=== PATIENT | male | born 1940 | race Caucasian/White ===

== ENCOUNTER 2019-09-21 14:58 | Inpatient (IN) ==
--- NOTE | 2019-09-21 15:32 | Diag Imaging Result Doc PS360 ---
EXAM: CHEST-1 VIEW INDICATION: PNEUMONIA TECHNIQUE: One view COMPARISON: None. FINDINGS: There is a right upper lobe groundglass airspace consolidation consistent with pneumonia. There is no discrete pleural fluid collection or pneumothorax. The cardiomediastinal silhouette and central vasculature are grossly unremarkable. IMPRESSION: Right upper lobe pneumonia. Electronically signed by Shravan Garsia 09/21/2019 3:30 PM
[2019-09-21] MEDS ORDERED: NS 1,000 ML IV ONE (15:34)
[2019-09-21] MEDS ORDERED: CARDIZEM IV ONE ×2 (15:34→17:18)
[2019-09-21] MEDS ORDERED: ZITHROMAX 500 MG/NS 500 MG/250 ML IVPB IV ONE (15:36)
[2019-09-21] MEDS ORDERED: DUONEB (A & A) INH ONE (15:36)
[2019-09-21] MEDS ORDERED: ROCEPHIN 1 GM in NS 50 ML IV ONE (15:36)
[2019-09-21 16:12] LABS: BASO# 0.01 X1000 (0.0-0.2); BASO% 0.1 % (0.0-0.8); HEMATOCRIT 34.6 % (42.0-52.0); HEMOGLOBIN 11.9 g/dL (14.0-18.0); IMM GRAN# 0.06 X1000 (0.0-0.04); IMM GRAN% 0.3 % (0.0-0.5); LYMPH# 0.81 X1000 (1.2-3.4); LYMPH% 4.3 % (20.5-51.1); MCH 31.5 PG (27-31); MCHC 34.4 g/dL (33-37); MCV 91.5 FL (81-99); MONO# 0.87 X1000 (0.11-0.59); MONO% 4.6 % (1.7-9.3); MPV 10.6 FL (7.4-10.4); NEUT# 17.09 X1000 (1.4-6.5); NEUT% 90.7 % (42.2-75.2); PLT 349 X1000 (130-400); RBC 3.78 XMIL (4.7-6.1); RDW 13.2 % (11.5-14.5); WBC 18.84 X1000 (4.8-10.8)
[2019-09-21 16:44] LABS: INR 1.15; PROTIME 14.9 Seconds (11.0-16.0)
[2019-09-21 16:45] LABS: PTT 32.9 Seconds (22.3-41.8)
[2019-09-21 16:51] LABS: ESTIMATED GFR > 60
[2019-09-21 17:04] LABS: AGAP 19; ALB/GLOB RATIO 0.7; ALBUMIN 3.1 g/dL (3.5-5.0); ALKALINE PHOSPHATASE 73 U/L (32-122); BUN 15 mg/dL (8-22); CALCIUM 8.4 mg/dL (8.8-10.2); CHLORIDE 83 mmol/L (98-107); CK PROFILE 131 U/L (24-204); COSMO 256; CREATININE 0.9 mg/dL (0.7-1.2); GLUCOSE 273 mg/dL (70-104); GOT 16 U/L (10-34); GPT 13 U/L (10-44); POTASSIUM 3.4 mmol/L (3.5-5.1); SODIUM 122 mmol/L (136-145); TCO2 20 mmol/L (25-35); TOTAL BILIRUBIN 0.86 mg/dL (0.20-1.00); TOTAL PROTEIN 7.6 g/dL (6.3-8.3)
--- NOTE | 2019-09-21 17:59 | EKG Report ---
Test Performed on : 09/21/2019 3:04:16 PM Test Reason : CHEST PRESSURE Blood Pressure : / mmHG Vent. Rate : 143 BPM Atrial Rate : 384 BPM P-R Int : 000 ms QRS Dur : 080 ms QT Int : 270 ms P-R-T Axes : 036 007 047 degrees QTc Int : 416 ms Atrial flutter. with variable AV block. with premature ventricular or aberrantly conducted complexes. Abnormal ECG No previous ECGs available Unconfirmed Result
--- NOTE | 2019-09-21 18:21 | PROVIDER DOCUMENTATION ---
This chart was entered by Suzy Dennison Scribe, acting as scribe for Rene Montgomery MD. HPI-Cardiac General - General Chief Complaint: SEPSIS ALERT - D Stated Complaint: LEFT SHOULDER PAIN,PNEUMONIA Time Seen by Provider: 09/21/19 15:24 Source: patient Allergies/Adverse Reactions: Patient Allergies Allergy/AdvReac Type Severity Reaction Status Date / Time piroxicam [From Feldene] AdvReac HIVES Verified 09/21/19 15:47 - History of Present Illness-Cardiac Nature of Presenting Problem: Patient is a 79 y/o male presenting to the ED today c/o cough, fever. Patient was seen this morning at an urgent care and diagnosed with pneumonia. Upon exam, patient was found to be in atrial fibrillation and advised to come to the ER. Patient reports he has felt unwell with cough and intermittent fever for the last 10-12 days. Patient reports he was exposed to flu and finished taking prophylactic tamiflu yesterday. Patient states he has been experiencing SOB, worse with exertion. Patient denies orthopnea or edema. Patient c/o left shoulder pain. Patient is a smoker. Patient denies history of atrial fibrillation. Patient denies all other signs/symptoms. Onset/Duration: other (10 days) Prior Chest Pain/Cardiac Workup: reports: no prior chest pain, no prior cardiac workup Associated Symptoms: reports: fever/chills, shortness of breath (with cough) Similar Symptoms Previously?: No Recently Seen Here or By Another Healthcare Provider: Yes (Urgent Care - sent here for further evaluation) Review of Systems - Adult - REVIEW OF SYSTEMS - ADULT Constitutional: reports: chills, fever Eyes: reports: no symptoms reported Ears, Nose, Mouth & Throat: reports: no symptoms reported Cardiovascular: denies: chest pain, orthopnea Respiratory: reports: cough, dyspnea on exertion, shortness of breath Gastrointestinal: denies: abdominal pain, diarrhea, nausea, vomiting Genitourinary: reports: no symptoms reported Musculoskeletal: reports: no symptoms reported Integumentary: reports: no symptoms reported Neurological: reports: no symptoms reported Psychiatric: reports: no symptoms reported Endocrine: reports: no symptoms reported Hematologic/Lymphatic: reports: no symptoms reported Allergic/Immunologic: reports: no symptoms reported All Other Systems: Reviewed and Negative Past History - Adult - PAST MEDICAL HISTORY-ADULT Review of Records: reports: Old Records Reviewed, Nursing Assessment Review, Medications Reviewed, Social history reviewed & non-contributory. Major Childhood Illnesses: reports: denies history Cardiovascular: reports: HTN Respiratory: reports: denies history Gastrointestinal: reports: denies history Obstetrical/Gynecological: reports: denies history Genitourinary: reports: denies history Musculoskeletal: reports: denies history Neurological: reports: denies history Psychiatric: reports: denies history Endocrine/Immune: reports: denies history Other Conditions: reports: denies history - PRIOR SURGERIES/PROCEDURES Surgical/Procedure History: reports: none - SOCIAL HISTORY Smoking: cigarettes Physical Exam-General - PHYSICAL EXAM-ADULT Initial Vital Signs Reviewed: Yes (tachypnea, irregular tachycardia) - CONSTITUTIONAL General Appearance: appears well, alert, no apparent distress - EYES Eyes: PERRL/EOMI, pink conjunctivae - HEAD, EARS, NOSE, MOUTH & THROAT HENMT: moist mucous membranes, normal ENT inspection - NECK Neck: full range of motion - RESPIRATORY Respiratory: rhonchi, increased rate - CARDIOVASCULAR Cardiovascular: no edema, tachycardia, irregularly irregular - GASTROINTESTINAL (ABDOMEN) Abdominal Exam: non tender, soft - LYMPHATIC Lymphatic: no adenopathy - MUSCULOSKELETAL Back Exam: normal inspection Extremity: normal range of motion, normal gait, normal inspection, no pedal edema - SKIN Integumentary: normal color, normal turgor, warm/dry - NEUROLOGIC Neurologic: grossly normal, no motor/sensory deficits - PSYCHIATRIC Psych/Mental Status: normal mood/affect, normal thought content, normal thought process Progress - PLAN OF CARE/RESULTS Progress/Plan/Lab Results: Vital Signs - 8 hr 09/21/19 15:11 09/21/19 15:59 Temperature 98.6 F Pulse Rate 129 H 113 H Respiratory Rate 22 18 Blood Pressure 145/69 O2 Sat by Pulse Oximetry 95 96 09/21/19 16:55 Influenza Screen - Final Nasopharyngeal Laboratory Results - last 24 hr 09/21/19 09/21/19 09/21/19 15:12 15:44 15:44 WBC 18.84 H RBC 3.78 L Hgb 11.9 L Hct 34.6 L MCV 91.5 MCH 31.5 H MCHC 34.4 RDW Std Deviation 13.2 Plt Count 349 MPV 10.6 H Immature Gran % (Auto) 0.3 Neut % (Auto) 90.7 H Lymph % (Auto) 4.3 L [place] % (Auto) 4.6 Eos % (Auto) 0.0 Baso % (Auto) 0.1 Immature Gran # (Auto) 0.06 H Neut # (Auto) 17.09 H Lymph # (Auto) 0.81 L [place] # (Auto) 0.87 H Eos # (Auto) 0.00 Baso # (Auto) 0.01 PT INR PTT (Actin FS) Sodium 122 L Potassium 3.4 L Chloride 83 L Carbon Dioxide 20 L Anion Gap 19 BUN 15 Creatinine 0.9 Estimated GFR/1.73 m2 > 60 BUN/Creatinine Ratio 17 Glucose 273 H Calculated Osmolality 256 Calcium 8.4 L Total Bilirubin 0.86 AST 16 ALT 13 Alkaline Phosphatase 73 Creatine Kinase 131 Troponin T High Sens Fhy-X-Wpnxydcgtbq Pept Total Protein 7.6 Albumin 3.1 L Globulin 4.5 Albumin/Globulin Ratio 0.7 Plasma Lactate TSH 0.77 09/21/19 09/21/19 09/21/19 15:44 15:44 15:44 WBC RBC Hgb Hct MCV MCH MCHC RDW Std Deviation Plt Count MPV Immature Gran % (Auto) Neut % (Auto) Lymph % (Auto) [place] % (Auto) Eos % (Auto) Baso % (Auto) Immature Gran # (Auto) Neut # (Auto) Lymph # (Auto) [place] # (Auto) Eos # (Auto) Baso # (Auto) PT 14.9 INR 1.15 PTT (Actin FS) 32.9 Sodium Potassium Chloride Carbon Dioxide Anion Gap BUN Creatinine Estimated GFR/1.73 m2 BUN/Creatinine Ratio Glucose Calculated Osmolality Calcium Total Bilirubin AST ALT Alkaline Phosphatase Creatine Kinase Troponin T High Sens 19 Toi-I-Zftdwyqaqgz Pept Total Protein Albumin Globulin Albumin/Globulin Ratio Plasma Lactate 3.0 H TSH 09/21/19 15:44 WBC RBC Hgb Hct MCV MCH MCHC RDW Std Deviation Plt Count MPV Immature Gran % (Auto) Neut % (Auto) Lymph % (Auto) [place] % (Auto) Eos % (Auto) Baso % (Auto) Immature Gran # (Auto) Neut # (Auto) Lymph # (Auto) [place] # (Auto) Eos # (Auto) Baso # (Auto) PT INR PTT (Actin FS) Sodium Potassium Chloride Carbon Dioxide Anion Gap BUN Creatinine Estimated GFR/1.73 m2 BUN/Creatinine Ratio Glucose Calculated Osmolality Calcium Total Bilirubin AST ALT Alkaline Phosphatase Creatine Kinase Troponin T High Sens Tal-N-Azosvukvtel Pept 1145 H Total Protein Albumin Globulin Albumin/Globulin Ratio Plasma Lactate TSH Orders Category Date Time Status Cardiac Monitoring DIRECTED Care 09/21/19 15:15 Active IV Insertion ORDERED Care 09/21/19 15:15 Completed Notify MD of + Sepsis Screen NOW Care 09/21/19 15:15 Active Notify Physician As Ordered Care 09/21/19 15:15 Active CHEST-1 VIEW [RAD] Stat Exams 09/21/19 15:15 Completed BLOOD CULTURE [BLDCUL] Stat Lab 09/21/19 15:12 Results CBC WITH DIFF [HEME] Stat Lab 09/21/19 15:44 Completed CK PROFILE [SP CHEM] Stat Lab 09/21/19 15:44 Completed COMPREHENSIVE METABOLIC PANEL [CHEM] Stat Lab 09/21/19 15:44 Completed INFLUENZA SCREEN A/B Stat Lab 09/21/19 16:55 Completed LACTATE, PLASMA [CHEM] Lab 09/21/19 15:44 Completed LACTATE, PLASMA [CHEM] Lab 09/21/19 18:15 Uncollected LACTATE, PLASMA [CHEM] Lab 09/21/19 21:15 Uncollected PRO B-NATRIURETIC PEPTIDE Stat Lab 09/21/19 15:44 Completed PROTIME WITH INR [COAG] Stat Lab 09/21/19 15:44 Completed PTT [COAG] Stat Lab 09/21/19 15:44 Completed SPUTUM CULTURE WITH GRAM STAIN [RM] Stat Lab 09/21/19 15:34 Uncollected TROPONIN T HIGH SENSITIVITY Stat Lab 09/21/19 15:44 Completed TSH Stat Lab 09/21/19 15:12 Completed URINALYSIS W/POSS RFLX CULT [URINALYSIS] Stat Lab 09/21/19 15:15 Uncollected 0.9% Sodium Chloride Inj [Ns] 1,000 ml Med 09/21/19 15:34 Discontinued IV 999 mls/hr Albuterol 2.5MG/Ipratrop 0.5MG [Duoneb (A & A)] Med 09/21/19 15:36 Discontinued 3 ml INH NOW ONE Azithromycin 500 mg/Ns [Zithromax 500 mg/Ns] Med 09/21/19 15:36 Discontinued 500 mg in 250 ml IV NOW CefTRIAXONE [Rocephin] 1 gm Med 09/21/19 15:36 Discontinued 0.9% Sodium Chloride Inj [Ns] 50 ml IV NOW Diltiazem 100 mg/Ns [Cardizem 100 mg/Ns] Med 09/21/19 17:30 Active 100 mg in 100 ml IV As Directed mls/hr Diltiazem [Cardizem] Med 09/21/19 17:18 Discontinued 20 mg IV NOW ONE Diltiazem [Cardizem] Med 09/21/19 15:34 Discontinued 25 mg IV NOW ONE Aerosol Treatments Routine Oth 09/21/19 15:37 Completed Aerosol Treatments Stat Oth 09/21/19 15:37 Completed Oxygen Device Stat Oth 09/21/19 15:15 Completed EKG [EKG] Stat Ther 09/21/19 15:05 Draft Result Diagrams: 09/21/19 15:44 09/21/19 15:44 - REASSESSMENT Reassessment #1 Time Reassessed: 17:26 Status: improving (Patient met septic criteria, though no septic shock or severe sepsis. Given IV rocephin/zithromax for CAP. Was also in AFIB with RVR, had some minimal response with initial Cardizem bolus, so will give second cardizem bolus and start IV infusion. Will need hospital admit.) - EKG 1 Time of EKG reading by physician:: 15:24 EKG Read and Signed by:: Rene Montgomery EKG Interpretation (*Must complete 3 of following elements*): Abnormal Rate: 143 Rhythm: Atrial fibrillation with RVR QRS: PVC's, other (high voltage) - XRAY 1 XRAY Study: Chest Impression: See EMR Report (EXAM: CHEST-1 VIEW INDICATION: PNEUMONIA TECHNIQUE: One view COMPARISON: None. FINDINGS: There is a right upper lobe groundglass airspace consolidation consistent with pneumonia. There is no discrete pleural fluid collection or pneumothorax. The cardiomediastinal silhouette and central vasculature are grossly unremarkable. IMPRESSION: Right upper lobe pneumonia. Electronically signed by Shravan Garsia 09/21/2019 3:30 PM 09/21/19 1530 Interpreting Physician: Shravan Garsia MD Dictated Date/Time: 09/21/19 1529 cc: Rene Montgomery MD; Rich Jones MD) - CONSULTS/PCP/HOSPITALIST Notification #1 *Consult/PCP/Hospitalist*: [employer] auto transmission technician for Karen paged at 1720 Time Discussed: 18:21 Consult Disposition: Will see in ED, Admit Departure - Departure Date of Disposition Decision: 09/21/19 Time of Disposition Decision: 17:28 DIAGNOSIS: Atrial fibrillation with rapid ventricular response, New onset a-fib Right upper lobe pneumonia Qualifiers: Pneumonia type: due to unspecified organism Qualified Code(s): J18.1 - Lobar pneumonia, unspecified organism Sepsis without acute organ dysfunction Qualifiers: Sepsis type: sepsis due to unspecified organism Qualified Code(s): A41.9 - Sepsis, unspecified organism Disposition: ADMITTED INPATIENT 09 Certified Medical Emergency: Emergent Condition: Fair Referrals and Follow-Ups: Rich Jones MD [Primary Care Provider] - - Critical Care Note This patient required my direct & personal management of CC.: Yes Total Time (mins): 45 Critical Care Statement: This patient required my direct personal management to treat or rule out processes, the absence of which, could potentiallly result in sudden, clinically significant life or limb threatening deterioration. Attestation - Physician/ VEE Attestation Patient care was provided by Advanced Practice Provider:: No The physician spent face to face time with patient:: Yes Advanced Practice Provider documentation review:: Supervising physician onsite and consulted in the evaluation and care of this patient. The physician did have a face to face encounter with the patient. This chart was documented by the indicated scribe, (Suzy Dennison Scribe) and accurately reflects the services I performed and decisions made by me, Rene Montgomery MD, as attested by the provider's signature.
[2019-09-21] MEDS ORDERED: ZOFRAN IV PRN (19:08)
[2019-09-21] MEDS ORDERED: NS + KCL 20 MEQ 1,000 ML IV ONE (19:39)
[2019-09-21] MEDS ORDERED: MAGNESIUM SULFATE 2 GM/S.W.I. 2 GM/50 ML IVPB IV ONE (19:41)
[2019-09-21 19:51] LABS: URINE SOURCE CLEAN CATCH
[2019-09-21 19:54] LABS: BILIRUBIN URINE NEGATIVE (NEGATIVE); BLOOD URINE TRACE (NEGATIVE); COLOR YELLOW; GLUCOSE URINE >1000 mg/dL (NEGATIVE); KETONE URINE NEGATIVE (NEGATIVE); LEUKOCYTES URINE NEGATIVE (NEGATIVE); NITRITE URINE NEGATIVE (NEGATIVE); PROTEIN URINE 30 mg/dL (NEGATIVE); SP GRAVITY URINE 1.016; TURBIDITY URINE CLEAR (CLEAR); UROBILINOGEN URINE NORMAL (NORMAL)
[2019-09-21 20:05] LABS: UR EPITHELIAL CELLS <10 /HPF (<10); URINE BACTERIA NEGATIVE /HPF; URINE RBC <10 /HPF (<10); URINE WBC <10 /HPF (<10)
--- NOTE | 2019-09-21 20:17 | HISTORY AND PHYSICAL ---
CHIEF COMPLAINT: Fever and weakness. HISTORY OF PRESENT ILLNESS: This is a robust 79-year-old white male states that his "illness" began about 10 days ago. He had a relative that had the flu and unfortunately he suffered direct exposure to that. He called Dr. Jones and got a prescription of 10 days of Tamiflu filled. He ran out of that yesterday. The night before last, he had a hard, shaking chill and fever. He wanted to go to the Urgent Care yesterday to get checked out but did not make it. He finally went today and they sent him on to the emergency room because he looked too sick. The patient reveals a history of several days of coughing up thick, yellow sputum and feeling very "worn down." He states that he gets short of breath with exertion and feels very weak when he tries to get up and go. His appetite has been poor compared to baseline, although he has been drinking ice water frequently. He has suffered no chest pain or palpitations. He has had no nausea or vomiting. He has had no choking incidents or swallowing difficulty. He does not feel wheezy. He has had normal bowel and urine function. Emergency room evaluation revealed that the patient was in atrial flutter at a high rate. He also had a right upper lobe infiltrate consistent with pneumonia. He is admitted for evaluation and treatment of those primary diagnoses. PAST MEDICAL HISTORY: 1. Hypertension. 2. Hyperlipidemia. 3. 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 ALLERGIES: Feldene (piroxicam). PRESENT MEDICATIONS: Telmisartan hydrochlorothiazide 80/25 one p.o. daily, simvastatin 20 mg p.o. at bedtime, bisoprolol 5 mg p.o. daily, amlodipine 5 mg p.o. daily. SOCIAL HISTORY: The patient is and lives with his . His baseline function is very high for his age of 79. He is a former smoker who quit in 1985. He drinks a few beers per week but this is sporadic use and not regular. He does not drink any hard liquor. He does not take any chronic pain medications. REVIEW OF SYSTEMS: Please see history of present illness. The patient's weight has been stable. He has noted no visual changes. He states he has several "bad teeth." He has had no joint pain or myalgias to speak of. He has not had any swelling in his lower extremities. He has no signs and symptoms consistent with orthopnea or PND. PHYSICAL EXAMINATION: VITAL SIGNS: 98.6, 106 at the time of my examination, respirations are 12 and nonlabored, blood pressure 145/69, 95% saturated on room air. HEENT: The sclerae are anicteric. Oral mucosa is slightly dry but not parched. NECK: Reveals no carotid bruits or JVD. LUNGS: Show some wheezing in the right upper lobe, but no crackles or иван rales. He has good air movement. The remainder of lung hamilton are clear. CARDIOVASCULAR: Irregularly irregular at approximately 100 beats per minute the time my examination. ABDOMEN: Shows bowel sounds are present. EXTREMITIES: Show no peripheral edema. Peripheral pulses in the upper and lower extremity are palpable. NEUROLOGIC: Cranial nerves are intact. The patient's mentation is normal. He moves freely in the bed. LABORATORY: White cell count is 18.8, hematocrit 34.6. Sodium 122, potassium 3.4. ProBNP is 1145. Glucose was 273. ASSESSMENT AND PLAN: 1. The patient has a right upper lobe pneumonia, which will be treated as a community-acquired disease. I am going to give him p.o. Levaquin and IV Rocephin. Because of his new onset of atrial flutter/atrial fibrillation I am going to forego breathing treatments at the present time. 2. New onset of atrial flutter. We will continue to monitor this. He will be on a Cardizem drip and telemetry. I am going to replete his electrolytes and hopefully that will stabilize his heart. I am going to give him a 1 L fluid bolus of normal saline with a little potassium in it. I am also going to give him magnesium as a cardiac muscle stabilizer. Despite his normal blood pressure I do feel he is a little bit dry. 3. Noted the patient's blood sugar of 273. He does not have a history of diabetes. 4. ProBNP of 1145 is likely driven by the new onset of atrial fibrillation, flutter. His overall sense of fatigue could have been due to the atrial fibrillation, flutter or it could have been due to pneumonia or could have been due to both and topped off with relative dehydration I can see why he felt weak. It is noted that his TSH is normal. 5. The patient will be in the hospital for several days. I am going to try and get him a PVC bed and we will recheck laboratories in the morning. cc: Terrence Sarmiento MD
[2019-09-21] MEDS: HUMALOG SUBQ SCH (21:10)
[2019-09-21] MEDS: BIDEX PO SCH (23:10)
[2019-09-21] MEDS: LEVAQUIN PO SCH (23:22)
[2019-09-21] MEDS: CARDIZEM 100 MG/NS 100 MG/100 ML IVPB IV SCH (23:32)
[2019-09-22] MEDS: CARDIZEM 100 MG/NS 100 MG/100 ML IVPB IV SCH ×3 (05:42→21:50)
[2019-09-22] MEDS: HUMALOG SUBQ SCH ×4 (06:38→20:44)
[2019-09-22 07:02] LABS: AGAP 14; ALB/GLOB RATIO 0.7; ALBUMIN 2.7 g/dL (3.5-5.0); ALKALINE PHOSPHATASE 65 U/L (32-122); BUN 10 mg/dL (8-22); CALCIUM 7.8 mg/dL (8.8-10.2); CHLORIDE 90 mmol/L (98-107); COSMO 260; CREATININE 0.6 mg/dL (0.7-1.2); ESTIMATED GFR > 60; GLUCOSE 166 mg/dL (70-104); GOT 19 U/L (10-34); GPT 11 U/L (10-44); MAGNESIUM 1.6 mg/dL (1.5-2.7); POTASSIUM 3.4 mmol/L (3.5-5.1); SODIUM 128 mmol/L (136-145); TCO2 24 mmol/L (25-35); TOTAL BILIRUBIN 0.73 mg/dL (0.20-1.00); TOTAL PROTEIN 6.4 g/dL (6.3-8.3)
[2019-09-22 07:13] LABS: BASO# 0.01 X1000 (0.0-0.2); BASO% 0.1 % (0.0-0.8); HEMATOCRIT 29.9 % (42.0-52.0); HEMOGLOBIN 10.3 g/dL (14.0-18.0); IMM GRAN# 0.06 X1000 (0.0-0.04); IMM GRAN% 0.5 % (0.0-0.5); LYMPH# 0.85 X1000 (1.2-3.4); LYMPH% 6.7 % (20.5-51.1); MCH 32.2 PG (27-31); MCHC 34.4 g/dL (33-37); MCV 93.4 FL (81-99); MONO# 0.92 X1000 (0.11-0.59); MONO% 7.2 % (1.7-9.3); MPV 9.5 FL (7.4-10.4); NEUT# 10.86 X1000 (1.4-6.5); NEUT% 85.5 % (42.2-75.2); PLT 287 X1000 (130-400); RDW 13.2 % (11.5-14.5)
[2019-09-22] MEDS: LEVAQUIN PO SCH (09:31)
[2019-09-22] MEDS: BIDEX PO SCH ×3 (09:31→20:44)
[2019-09-22] MEDS: TYLENOL PO PRN (11:35)
[2019-09-22] MEDS ORDERED: MAGNESIUM SULFATE 1 GM/D5W 1 GM/100 ML IVPB IV ONE (12:19)
[2019-09-22] MEDS ORDERED: NS + KCL 20 MEQ 1,000 ML IV SCH (12:30)
--- NOTE | 2019-09-22 12:47 | PROGRESS NOTE ---
DATE: 09/22/2019 SUBJECTIVE: The patient states that he is feeling somewhat better. He is not having shortness of breath. He denies any palpitations. His cough has not worsened since admission. He tends to have a moderately productive cough. He is not wheezing. OBJECTIVE: Vital Signs: 98.1, 102, 136/83, 94% saturated on room air. Physical Examination: The patient is alert, oriented, conversive, and appropriate. The patient's lungs show expiratory wheeze in the right upper lobe. There were no crackles. He has good air movement and is in no distress. Cardiovascular: Irregularly irregular at about 100 beats per minute at the time of my examination. Extremities: No peripheral edema. Neurologic: Cranial nerves are intact. Laboratory: White cell count is 12.7 which is markedly reduced from previously, hemoglobin is 10.3 which is slightly lower. Sodium is 128 which is improved from yesterday, potassium 3.4 which is the same as yesterday, creatinine 0.6, blood sugar 176. Magnesium is 1.6 which is improved. ASSESSMENT AND PLAN: 1. The patient is on Levaquin and intravenous Rocephin for right upper lobe pneumonia. We will get a repeat chest x-ray tomorrow. 2. The patient has new onset of atrial flutter. He is rate controlled in a reasonable fashion right now with a Cardizem drip. Consideration for cardiology consultation can be made Monday by Dr. Jones. We will continue telemetry. Although his electrolytes have improved today, I am going to give him another fluid bolus with normal saline and potassium, and give him another 1 g of magnesium. Blood pressure is normal. 3. The patient's noted blood sugar of 273 in the emergency room has been treated with sliding scale. He does not have a history of diabetes. His blood sugars thus far in the hospital have been in the upper 100s. 4. Noted proBNP at 1145. 5. The patient will continue on the Cardizem drip. We will continue to try and correct electrolytes. We will treat infection. Dr. Jones will take over care tomorrow. cc: MD Rich Ahmadi MD
[2019-09-22] MEDS ORDERED: NS + KCL 20 MEQ 1,000 ML IV ONE (14:00)
[2019-09-22] MEDS: ROCEPHIN 1 GM in NS 50 ML IV SCH (20:45)
[2019-09-22] MEDS ORDERED: DUONEB (A & A) INH ONE (21:15)
[2019-09-22] MEDS ORDERED: LANOXIN IV ONE (21:16)
[2019-09-22 22:04] LABS: ALLEN TEST YES; BE 2.1 mmoll (-3.0-3.0); BLOOD TYPE ARTERIAL; HCO3-(ACT) 26.5 mmoll (20.0-26.0); METHB 1.6 % (0.0-1.5); O2(CT) 14.5 mL/dL (15.0-23.0); O2HB 93.5 % (95.0-99.0); PCO2(98.6) 31 mmHg (35-45); PO2(98.6) 70 mmHg (60-100); SAMPLE BLOOD; pH(98.6) 7.51 (7.35-7.45)
[2019-09-22 22:05] LABS: MODALITY CANNULA
[2019-09-22 22:14] LABS: CK INDEX 2.7 (0.0-2.5); CK-MB 5.99 ng/mL (0.0-5.0)
[2019-09-22] MEDS ORDERED: XARELTO PO ONE (22:29)
--- NOTE | 2019-09-23 00:22 | EKG Report ---
Test Performed on : 09/22/2019 10:16:58 PM Test Reason : CP Blood Pressure : / mmHG Vent. Rate : 120 BPM Atrial Rate : 129 BPM P-R Int : 000 ms QRS Dur : 094 ms QT Int : 334 ms P-R-T Axes : 000 027 049 degrees QTc Int : 472 ms Atrial fibrillation. with rapid ventricular response. with premature ventricular or aberrantly conduc balwinder complexes. Abnormal ECG When compared with ECG of 21-SEP-2019 15:04, (Unconfirmed) Atrial fibrillation. has replaced Atrial flutter. Confirmed by Gadiel DELANEY MArsenio Iverson ([id number]) on 09/25/2019 12:13:08 PM
[2019-09-23] MEDS: CARDIZEM 100 MG/NS 100 MG/100 ML IVPB IV SCH (04:54)
[2019-09-23] MEDS: HUMALOG SUBQ SCH (06:26)
[2019-09-23 06:50] LABS: BASO# 0.01 X1000 (0.0-0.2); BASO% 0.1 % (0.0-0.8); HEMATOCRIT 32.1 % (42.0-52.0); HEMOGLOBIN 10.8 g/dL (14.0-18.0); IMM GRAN# 0.04 X1000 (0.0-0.04); IMM GRAN% 0.4 % (0.0-0.5); LYMPH# 0.56 X1000 (1.2-3.4); LYMPH% 6.1 % (20.5-51.1); MCH 31.1 PG (27-31); MCHC 33.6 g/dL (33-37); MCV 92.5 FL (81-99); MONO# 0.85 X1000 (0.11-0.59); MONO% 9.2 % (1.7-9.3); MPV 9.8 FL (7.4-10.4); NEUT# 7.78 X1000 (1.4-6.5); NEUT% 84.2 % (42.2-75.2); PLT 358 X1000 (130-400); RBC 3.47 XMIL (4.7-6.1); RDW 12.9 % (11.5-14.5); WBC 9.24 X1000 (4.8-10.8)
[2019-09-23 07:18] LABS: AGAP 13; BUN 8 mg/dL (8-22); CALCIUM 8.1 mg/dL (8.8-10.2); CHLORIDE 92 mmol/L (98-107); COSMO 261; CREATININE 0.5 mg/dL (0.7-1.2); ESTIMATED GFR > 60; GLUCOSE 200 mg/dL (70-104); MAGNESIUM 1.6 mg/dL (1.5-2.7); POTASSIUM 3.5 mmol/L (3.5-5.1); SODIUM 128 mmol/L (136-145); TCO2 23 mmol/L (25-35)
[2019-09-23] MEDS ORDERED: ZEBETA PO ONE (09:39)
--- NOTE | 2019-09-23 10:58 | CARDIOLOGY CONSULTATION ---
DATE: 09/23/2019 REASON FOR CONSULTATION: The patient was admitted with pneumonia, new-onset atrial fibrillation. Cardiology was consulted. HISTORY OF PRESENT ILLNESS: A 79-year-old, gentleman with history of hypertension, hyperlipidemia, has been treated with Tamiflu with direct exposure to flu as an outpatient with Dr. Jones. He is admitted with fevers and chills. Came to the urgent care, and subsequently was admitted. He was noted to have upper lobe pneumonia, and was admitted. He has been having cough with lilrrr-[id number]-ythisheyatbg expectoration. Denies chest pain suggestive of angina. Feels very weak. REVIEW OF SYSTEMS: A 14-point review of systems was done. GI: There is no history of nausea, vomiting, diarrhea. There is no history of hematemesis or melena. Central Nervous System: No focal weakness to suggest a CVA or TIA. Genitourinary: There is no dysuria or hematuria. PAST MEDICAL HISTORY: Hypertension, hyperlipidemia, multiple basal cell carcinoma of the skin. ALLERGIES: Feldene. HOME MEDICATIONS: Telmisartan/hydrochlorothiazide 80/25, simvastatin, bisoprolol 5, amlodipine 5. SOCIAL HISTORY: The patient is . Lives with his . His baseline function is high for a 79-year-old. He is a former smoker. PHYSICAL EXAMINATION: Vital Signs: Blood pressure 145/69, heart rate 110. Heart: First and second heart sounds were heard. There was no S3 gallop. Respiratory: Scattered wheeze. Abdomen: Soft, nontender. There was no guarding or rigidity. Bowel sounds were heard. Central Nervous System: Alert and oriented. Moving all 4 extremities. Extremities: No pedal edema. IMAGING AND LABORATORY DATA: Chest x-ray revealed right upper lobe pneumonia. WBC 18.84, hemoglobin 11.9, hematocrit 34.6, platelet count of 349,000. Sodium 128, potassium 3.5, BUN 8, creatinine 0.5. Cardiac enzymes negative. ASSESSMENT AND PLAN: 1. Mr. Rafa Almeida is a 79-year-old, gentleman with history of hypertension, hyperlipidemia, who is admitted with cough, fevers, and mucoid expectoration to mucopurulent expectoration. He has right upper lobe pneumonia. He is on antibiotics. 2. He went into atrial fibrillation and is on a Cardizem drip. This atrial fibrillation is more than likely related to his pneumonia. Would recommend discontinuing the Cardizem drip. I will put him on Cardizem 60 mg 3 times a day. Will discontinue the bisoprolol 5 and amlodipine 5. 3. He is hyponatremic. He was at home, on telmisartan/hydrochlorothiazide. The hydrochlorothiazide has been discontinued. 4. As far as anticoagulation therapy is concerned, his atrial fibrillation is more than likely secondary to acute issue of pneumonia and hyponatremia. However, he has an elevated CHADS2- VASc score. I have discussed the risks and benefits of anticoagulation therapy with the patient and his family. Will put him on Eliquis 5 mg to be taken twice daily. 5. Will get an electrocardiogram and lab work in the morning, in addition to an echocardiogram. Thank you for the consult. Will follow hospital course. cc: MD Rich Aguilar MD
[2019-09-23] MEDS: BIDEX PO SCH ×3 (11:35→23:25)
[2019-09-23] MEDS: LEVAQUIN PO SCH (11:36)
[2019-09-23] MEDS: CARDIZEM PO SCH ×3 (11:36→23:24)
[2019-09-23] MEDS: MICARDIS PO SCH (11:38)
[2019-09-23] MEDS ORDERED: CARDIZEM PO SCH (13:00)
[2019-09-23] MEDS: GLUCOPHAGE XR PO SCH (16:15)
[2019-09-23] MEDS: ALBUTEROL NEB INH SCH ×2 (16:19→21:31)
--- NOTE | 2019-09-23 17:00 | ECHO REPORT ---
ORDER DATE: 09/23/2019 INTERPRETING PHYSICIAN: Guy Castaneda MD INDICATION: Atrial flutter. M-MODE MEASUREMENTS: Left ventricle end diastole: 4.8 cm. Left ventricle end systole: 3.3 cm. Posterior wall: 0.9 cm. Interventricular septum: 0.9 cm. Left atrium: 5.2 cm. Aortic diameter: 3.6 cm. SUMMARY OF 2-DIMENSIONAL IMAGIN. Left ventricular function is preserved. Ejection fraction is 58%. The patient appears to be in atrial flutter. 2. The mitral valve shows mild degree of regurgitation. 3. The pulse wave Doppler of mitral inflow shows a single filling wave. 4. The aortic valve seems to open normally. Color flow mapping is unremarkable. 5. The pulmonic valve shows a mild degree of regurgitation. 6. The tricuspid valve shows a mild degree of regurgitation. The inferior vena cava appears to be mildly enlarged. 7. The pulmonary pressure is estimated at 57 mmHg. 8. The left atrium is moderately enlarged. 9. There is calcification of the mitral annulus. Diastolic function cannot be fully evaluated. 10.The pulse wave Doppler of pulmonary venous flow shows predominance of the diastolic component. 11.There is no definite pericardial effusion, mass, and no thrombus. Clinical correlation recommended. cc: MD Stefan Wilkins MD Russell T. Barr, MD
[2019-09-23] MEDS ORDERED: ZOCOR PO SCH (21:00)
[2019-09-23] MEDS ORDERED: XARELTO PO SCH (21:00)
[2019-09-23] MEDS: ELIQUIS PO SCH (23:24)
[2019-09-23] MEDS: ROCEPHIN 1 GM in NS 50 ML IV SCH (23:25)
[2019-09-23] MEDS: TYLENOL PO PRN (23:30)
[2019-09-24] MEDS: ALBUTEROL NEB INH SCH ×4 (03:14→20:43)
[2019-09-24 06:41] LABS: AGAP 13; BUN 7 mg/dL (8-22); CALCIUM 8.2 mg/dL (8.8-10.2); CHLORIDE 90 mmol/L (98-107); COSMO 257; CREATININE 0.5 mg/dL (0.7-1.2); ESTIMATED GFR > 60; GLUCOSE 162 mg/dL (70-104); MAGNESIUM 1.5 mg/dL (1.5-2.7); POTASSIUM 3.6 mmol/L (3.5-5.1); SODIUM 127 mmol/L (136-145); TCO2 24 mmol/L (25-35)
[2019-09-24] MEDS: CARDIZEM PO SCH ×4 (06:41→23:21)
[2019-09-24 06:44] LABS: BASO# 0.02 X1000 (0.0-0.2); BASO% 0.2 % (0.0-0.8); EOS# 0.02 X1000 (0.0-0.7); EOS% 0.2 % (0.0-10.0); HEMATOCRIT 31.3 % (42.0-52.0); HEMOGLOBIN 10.9 g/dL (14.0-18.0); IMM GRAN# 0.03 X1000 (0.0-0.04); IMM GRAN% 0.3 % (0.0-0.5); LYMPH# 0.91 X1000 (1.2-3.4); LYMPH% 9.2 % (20.5-51.1); MCH 32.2 PG (27-31); MCHC 34.8 g/dL (33-37); MCV 92.3 FL (81-99); MONO# 0.94 X1000 (0.11-0.59); MONO% 9.6 % (1.7-9.3); MPV 9.7 FL (7.4-10.4); NEUT# 7.92 X1000 (1.4-6.5); NEUT% 80.5 % (42.2-75.2); PLT 413 X1000 (130-400); RBC 3.39 XMIL (4.7-6.1); RDW 12.9 % (11.5-14.5); WBC 9.84 X1000 (4.8-10.8)
[2019-09-24 07:24] LABS: LYMPHS 9 % (21-51); MONO 9 % (1-9); SEGS 82 % (42-75)
[2019-09-24] MEDS: LEVAQUIN PO SCH (08:17)
[2019-09-24] MEDS: TYLENOL PO PRN (08:17)
[2019-09-24] MEDS: ELIQUIS PO SCH ×2 (08:17→21:13)
[2019-09-24] MEDS: BIDEX PO SCH ×3 (08:18→21:13)
[2019-09-24] MEDS: MICARDIS PO SCH (08:18)
[2019-09-24] MEDS ORDERED: HYDROCHLOROTHIAZIDE PO SCH (09:00)
[2019-09-24] MEDS ORDERED: MICARDIS PO SCH (09:00)
[2019-09-24] MEDS ORDERED: ZEBETA PO SCH (09:00)
[2019-09-24] MEDS ORDERED: NORVASC PO SCH (09:00)
[2019-09-24] MEDS: CELEBREX PO SCH (10:52)
[2019-09-24] MEDS ORDERED: SAMSCA PO ONE (12:46)
[2019-09-24] MEDS: GLUCOPHAGE XR PO SCH (16:21)
[2019-09-24 21:12] LABS: AGAP 12; BUN 7 mg/dL (8-22); CALCIUM 8.5 mg/dL (8.8-10.2); CHLORIDE 93 mmol/L (98-107); COSMO 268; CREATININE 0.6 mg/dL (0.7-1.2); ESTIMATED GFR > 60; GLUCOSE 263 mg/dL (70-104); POTASSIUM 3.5 mmol/L (3.5-5.1); SODIUM 130 mmol/L (136-145); TCO2 25 mmol/L (25-35)
[2019-09-24] MEDS: LIPITOR PO SCH (21:13)
[2019-09-25] MEDS: ALBUTEROL NEB INH SCH (03:17)
[2019-09-25 06:58] LABS: BASO# 0.02 X1000 (0.0-0.2); BASO% 0.2 % (0.0-0.8); EOS# 0.02 X1000 (0.0-0.7); EOS% 0.2 % (0.0-10.0); HEMATOCRIT 31.9 % (42.0-52.0); HEMOGLOBIN 10.6 g/dL (14.0-18.0); IMM GRAN# 0.06 X1000 (0.0-0.04); IMM GRAN% 0.5 % (0.0-0.5); LYMPH# 1.08 X1000 (1.2-3.4); LYMPH% 9.8 % (20.5-51.1); MCH 31.2 PG (27-31); MCHC 33.2 g/dL (33-37); MCV 93.8 FL (81-99); MONO# 0.95 X1000 (0.11-0.59); MONO% 8.7 % (1.7-9.3); MPV 9.8 FL (7.4-10.4); NEUT# 8.85 X1000 (1.4-6.5); NEUT% 80.6 % (42.2-75.2); PLT 496 X1000 (130-400); WBC 10.98 X1000 (4.8-10.8)
[2019-09-25 07:12] LABS: AGAP 13; BUN 5 mg/dL (8-22); CALCIUM 8.3 mg/dL (8.8-10.2); CHLORIDE 94 mmol/L (98-107); COSMO 270; CREATININE 0.6 mg/dL (0.7-1.2); ESTIMATED GFR > 60; GLUCOSE 181 mg/dL (70-104); MAGNESIUM 1.5 mg/dL (1.5-2.7); SODIUM 134 mmol/L (136-145); TCO2 27 mmol/L (25-35)
--- NOTE | 2019-09-25 08:50 | Diag Imaging Result Doc PS360 ---
EXAM: CHEST-2 VIEWS HISTORY: hypoxia, RUL infiltrate TECHNIQUE: AP and Lateral chest x-ray COMPARISON: 09/21/2019 FINDINGS: There is stable cardiomegaly. Right upper lobe consolidation is unchanged. There is new alveolar infiltrate and small effusion left lower lobe. Pulmonary vasculature is not congested. IMPRESSION: Developing left basilar infiltrate and small effusion. Unchanged right upper lobe consolidation. Electronically signed by Destiny Lion 09/25/2019 8:48 AM
[2019-09-25] MEDS: CELEBREX PO SCH (09:29)
[2019-09-25] MEDS: CARDIZEM CD PO SCH (09:29)
[2019-09-25] MEDS: BIDEX PO SCH ×3 (09:29→20:10)
[2019-09-25] MEDS: MICARDIS PO SCH (09:29)
[2019-09-25] MEDS: ELIQUIS PO SCH ×2 (09:30→20:10)
[2019-09-25] MEDS: LEVAQUIN PO SCH (09:30)
[2019-09-25 14:25] LABS: LYMPHS 10 % (21-51); MONO 7 % (1-9); SEGS 83 % (42-75)
--- NOTE | 2019-09-25 15:29 | EKG Report ---
Test Performed on : 09/25/2019 3:06:38 PM Test Reason : afib Blood Pressure : / mmHG Vent. Rate : 101 BPM Atrial Rate : 101 BPM P-R Int : 170 ms QRS Dur : 086 ms QT Int : 360 ms P-R-T Axes : 061 013 046 degrees QTc Int : 466 ms Sinus tachycardia. with premature supraventricular complexes. Otherwise normal ECG When compared with ECG of 22-SEP-2019 22:16, Sinus rhythm. has replaced Atrial fibrillation. Confirmed by Arpita Ramesh MD ([id number]) on 09/26/2019 8:10:30 AM
[2019-09-25] MEDS: GLUCOPHAGE XR PO SCH (16:38)
--- NOTE | 2019-09-25 16:50 | Diag Imaging Result Doc PS360 ---
EXAM: KNEE 1-2 VIEWS-LEFT INDICATION: left knee pain and effusion TECHNIQUE: 2 views COMPARISON: None. FINDINGS: There is no discrete fracture, dislocation, or significant intrinsic osseous lesion. There is mild degenerative change at the joint surface of the patella. The medial and lateral compartment joint spaces are maintained. There is mild soft tissue edema around the knee and there is a small effusion in the suprapatellar bursa. IMPRESSION: Soft tissue edema and a small effusion as described. No definite acute osseous abnormality. Electronically signed by Shravan Garsia 09/25/2019 4:48 PM
[2019-09-25] MEDS: LIPITOR PO SCH (20:10)
--- NOTE | 2019-09-25 20:51 | ORTHOPAEDICS CONSULTATION ---
DATE: 09/25/2019 REASON FOR CONSULTATION: Left knee effusion. HISTORY OF PRESENT ILLNESS: Mr. Almeida states that he was in his usual state of health until approximately 6-7 days ago when he started feeling sick and developed cough, congestion, and body aches. He had been exposed to the flu recently by a family member. He presented to Urgent Care and was diagnosed with a right upper lobe pneumonia and then noted to be in atrial fibrillation, so he was sent to the emergency department. While in the ER, he was noted to be in atrial fibrillation with RVR and was started on a Cardizem drip. His heart rate was noted to be elevated up to 123, and they found a right upper lobe infiltrate consistent with pneumonia. He was admitted to the hospital for evaluation and treatment of these as well as well as rule out sepsis due to his elevated heart rate. While being in the hospital, he developed left knee swelling. He denies any redness or tenderness to palpation to this area. He denied any injury to this area and describes as though his knee is going to give way on him. Orthopedics has been consulted due to this left knee effusion. PAST MEDICAL HISTORY: 1. Hypertension. 2. High cholesterol. 3. Diabetes type 2. 4. Skin cancer. ALLERGIES: Feldene. PAST SURGICAL HISTORY: He had cataract surgery and skin cancer removal. PRESENT MEDICATIONS: Include hydrochlorothiazide, simvastatin, metoprolol, and amlodipine. SOCIAL HISTORY: Mr. Almeida lives at home with his . He does not usually use a walker to ambulate. He is an occasional drinker of a few beers a week. He is a former smoker, and he quit smoking in 1985. REVIEW OF SYSTEMS: He denies any recent weight loss. He is having some left knee pain and swelling. A 10-point review of systems otherwise negative except as listed in HPI PHYSICAL EXAM: Vital signs: Reveal a temperature of 98.4 degrees, heart rate of 91, and he is saturating 93% on room air. Extremities: His left knee is nontender to palpation, though a large effusion is noted. There is no redness or warmth at this time. He has active dorsal flexion and plantar flexion of his left foot. His sensation is intact. He states that he feels as though his knee is going to give way. There is no laxity on exam. He has some tenderness to his anterolateral and anteromedial joint line. ASSESSMENT: Left knee effusion. PLAN: I have obtained a knee x-ray just to rule out causes of this effusion. Dr. Phillip will be coming to do a bedside aspiration of this, and due to patient's previous diagnosis of sepsis, we will send this off for culture and sensitivity as well as Gram stain. Further plan will be determined once these results are back. Addendum: Dr. Phillip aspirated 85ml of cloudy yellow fluid from left knee. The last of the aspirate was also noted to be blood tinged. Pt tolerated procedure well. This fluid was sent for C/S as well as gram stain. Dictated by HAROLDO Taylor for Hermes Phillip MD cc: MD Rich Martínez MD [facility]
[2019-09-26] MEDS: ELIQUIS PO SCH ×2 (08:14→21:45)
[2019-09-26] MEDS: LEVAQUIN PO SCH (08:15)
[2019-09-26] MEDS: MICARDIS PO SCH (08:15)
[2019-09-26] MEDS: BIDEX PO SCH ×3 (08:16→21:45)
[2019-09-26] MEDS: CARDIZEM CD PO SCH (08:17)
[2019-09-26] MEDS: CELEBREX PO SCH (08:17)
[2019-09-26] MEDS: GLUCOPHAGE XR PO SCH (16:46)
[2019-09-26] MEDS: LIPITOR PO SCH (21:45)
[2019-09-27 08:18] VITALS: BP 134/70
[2019-09-27] MEDS: LEVAQUIN PO SCH (09:05)
[2019-09-27] MEDS: CARDIZEM CD PO SCH (09:05)
[2019-09-27] MEDS: ELIQUIS PO SCH (09:05)
[2019-09-27] MEDS: BIDEX PO SCH (09:05)
[2019-09-27] MEDS: CELEBREX PO SCH (09:05)
[2019-09-27] MEDS: MICARDIS PO SCH (09:06)
--- NOTE | 2019-09-27 11:07 | DISCHARGE SUMMARY ---
ADMISSION DATE: 09/21/2019 DISCHARGE DATE: 09/27/2019 FINAL DIAGNOSES: 1. Bilateral pneumonia. 2. Paroxysmal atrial fibrillation. 3. Hypertension. 4. Hyperlipidemia. PRESENT ILLNESS: Mr. Almeida is a 79-year old gentleman who presented to Urgent Care on the day of admission with a 2 day history of hard shaking chills and a fever. He was noted to have an irregular rapid heartbeat and was referred to the Emergency Room for admission. He admitted to coughing up thick yellow sputum for several days and feeling "worn down". He complained of some shortness of breath with exertion but denied chest pain or palpitations. He had no nausea or vomiting. In the Emergency Room he was noted to have atrial flutter with a rapid response and a right upper lobe infiltrate consistent with pneumonia. He was also noted to be hyponatremic. He is a former smoker but has not smoked in over 30 years. PHYSICAL EXAMINATION: Respiratory: Some wheezing was noted in the right upper lobe but no crackles. Air movement was adequate. Cardiovascular: Irregularly irregular rhythm at approximately 100 beats per minute. No peripheral edema. DATABASE: White blood count is 18,800. Sodium is 122. ProBNP is 1145. Glucose is 273. HOSPITAL COURSE: He was admitted with community-acquired pneumonia diagnosis and treated with oral Levaquin and intravenous Rocephin. He was placed on a jelly maker and a Cardiology consult was obtained. Dr. Levin agreed with a Cardizem drip and eventually transitioned him to oral Cardizem. He has a history of impaired glucose tolerance and has been on metformin at home and was continued on that in the hospital. With this regimen his condition improved. His white blood count decreased to normal. He was noted to have mild anemia which persisted. His blood sugar eventually decreased to 160 to 180. He complained of left knee soreness and examination revealed a moderate effusion without increased warmth or redness. He was seen by Dr. Rachid Phillip who aspirated the knee. Cultures of this are negative at 48 hours for any infection. No steroids were instilled due to the suspicion of sepsis although his blood cultures were also negative. This improved his knee function and he was able to ambulate satisfactorily with physical therapy and a walker prior to discharge. He was discharged in improved condition and to return to my office in 8 to 14 days for a transition of care visit. He has completed 7 days of oral Levaquin and I do not feel that he will need any additional antibiotics at home. DISCHARGE MEDICATIONS: Acetaminophen p.r.n. for pain, apixaban 5 mg twice a day, atorvastatin 20 mg nightly at bedtime, celecoxib 200 mg capsule 1 daily, diltiazem CD 240 mg daily, metformin ER 1 g with supper daily, and telmisartan 80 mg daily. He is to discontinue the hydrochlorothiazide telmisartan combination. cc: Rich Jones MD
== END 2019-09-27 12:38 | disposition home or self-care (01) | DRG 871 ==
LOC: ED 14:58 → EDIPHOLD 20:34 → 2N 09-22 02:20
PROVIDERS: ADMIT Internal Medicine; ATTEND Internal Medicine